=== PATIENT | female | born 1950 ===

== ENCOUNTER 2018-12-25 11:17 | Emergency (ER) | payer OTHER ==
[~2018-12-25] VITALS: Ht 147.3 cm; Wt 72.1 kg
[2018-12-25] MEDS ORDERED: ZIAC 5-6.25 MG1 EACH PO (12:07)
[2018-12-25] MEDS ORDERED: AVAPRO75 MG PO (12:07)
[2018-12-25] MEDS ORDERED: ASA81 MG PO (12:08)
== END 2018-12-25 15:43 | disposition home or self-care (01) ==
LOC: ER 11:17
DX: M25.562 Pain in left knee (principal)